=== PATIENT | male | born 1965 | race Two or more races ===

== ENCOUNTER 2024-03-23 09:48 | Emergency (ER) | payer MEDICAID, OTHER ==
[~2024-03-23] VITALS: Ht 175.3 cm; Wt 106.6 kg
[2024-03-23 10:09] VITALS: BP 142/84; TEMP 98; O2SAT 97
[2024-03-23] MEDS ORDERED: KETOROLAC TROMETHAMINE INJ 30 MG/ML VIAL ONE (10:22)
[2024-03-23] MEDS: KETOROLAC TROMETHAMINE INJ 60 MG/2 ML VIAL IM ONE (10:23)
[2024-03-23] MEDS ORDERED: LIDOCAINE 2% 20 ML MDV ONE (10:55)
[2024-03-23] MEDS: oxyCODONE/APAP (5/325 MG) 1 UDTAB TABLET PO ONE (11:16)
[2024-03-23] MEDS ORDERED: oxyCODONE/APAP (5/325 MG) 1 UDTAB TABLET ONE (11:16)
== END 2024-03-23 13:24 | disposition home or self-care (01) ==
LOC: ER 09:50
DX: S52.592A Other fractures of lower end of left radius, initial encounter for closed fracture (principal); I10 Essential (primary) hypertension; K21.9 Gastro-esophageal reflux disease without esophagitis; W01.0XXA Fall on same level from slipping, tripping and stumbling without subsequent striking against object, initial encounter; Y93.01 Activity, walking, marching and hiking; Y92.89 Other specified places as the place of occurrence of the external cause; Y99.8 Other external cause status
CPT/HCPCS: 25605; 99284; 96372; 73130; 73564; 73110 ×2; J1885; J3490